=== PATIENT | male | born 1970 | race Caucasian/White ===

== ENCOUNTER → 2017-03-02 | Outpatient (CLI) | payer OTHER | LOC: HEART 5 02-22 08:45 | DX: R07.9 Chest pain, unspecified (principal); I10 Essential (primary) hypertension; R00.2 Palpitations; Q21.0 Ventricular septal defect; I27.2 Other secondary pulmonary hypertension; I07.1 Rheumatic tricuspid insufficiency; I51.7 Cardiomegaly | CPT/HCPCS: 78451; 78452; 93306; A9502 ==

== ENCOUNTER 2020-12-03 12:16 | Emergency (ER) | payer OTHER ==
[~2020-12-03 12:16] MED LIST: ATIVAN1 MG PO; BUSPAR 5MG TABLE5 MG PO; CRESTOR20 MG PO; DAILY VITAMIN1 EAC1 PO; DESYREL 50 MG T50 MG PO; EFFEXOR XR150 MG PO; FOLIC ACID 1 MG1 MG PO; IBUPROFEN800 MG PO; KEPPRA500 MG PO; LIBRIUM CAP 2525 MG PO; LOPRESSOR 25 MG25 MG PO; NORCO 5-325 TA1 EACH PO; PEPCID20 MG PO; SYNTHROID50 MCG PO; ZOCOR10 MG PO; ZOLOFT50 MG PO
[2020-12-03 13:12] LABS: HEMOGLOBIN 13.4 gm/dl (14.0-17.5); RED BLOOD COUNT 4.38 M/UL (4.20-5.50); WHITE BLOOD COUNT 12.9 K/UL (4.5-11.0)
[2020-12-03 14:21] LABS: BUN/CREATININE RATIO 10 (0-10)
[2020-12-03] MEDS ORDERED: LIBRIUM CAP 2525 MG PO (17:01)
[2020-12-03 18:13] LABS: BUN/CREATININE RATIO 9 (0-10)
== END 2020-12-03 19:10 | disposition home or self-care (01) ==
LOC: ER1 12:16
PROVIDERS: Family Medicine; Physician Assistant
DX: R56.9 Unspecified convulsions (principal); S46.921A Laceration of unspecified muscle, fascia and tendon at shoulder and upper arm level, right arm, initial encounter; S00.83XA Contusion of other part of head, initial encounter; E86.0 Dehydration; F19.10 Other psychoactive substance abuse, uncomplicated; I10 Essential (primary) hypertension; E78.00 Pure hypercholesterolemia, unspecified; W22.8XXA Striking against or struck by other objects, initial encounter
CPT/HCPCS: 36415; 70450; 70486; 71045; 72125; 73030; 80048; 80053; 80307; 81001; 82550; 82553; 83874; 84484; 85025; 85610; 85730; 93005; 96374; 96375; 96376; 99285; G0480; J2060; J2405; J3411; J3475; J7030

== ENCOUNTER 2021-05-04 16:29 | Emergency (ER) | payer OTHER ==
[2021-05-04 17:22] LABS: HEMOGLOBIN 13.4 gm/dl (14.0-17.5); RED BLOOD COUNT 4.1 M/UL (4.20-5.50); WHITE BLOOD COUNT 5.9 K/UL (4.5-11.0)
[2021-05-04 17:49] LABS: BUN/CREATININE RATIO 7 (0-10)
== END 2021-05-04 20:11 | disposition home or self-care (01) ==
LOC: ER1 16:29
PROVIDERS: Physician Assistant
DX: F10.10 Alcohol abuse, uncomplicated (principal); E87.1 Hypo-osmolality and hyponatremia; F41.9 Anxiety disorder, unspecified; I10 Essential (primary) hypertension; I25.10 Atherosclerotic heart disease of native coronary artery without angina pectoris; Z90.49 Acquired absence of other specified parts of digestive tract
CPT/HCPCS: 70450; 71045; 80053; 80307; 82550; 82553; 83874; 84439; 84443; 84484; 85025; 96374; 96375; 99284; G0480; J2060; J3411; J3475; J7030

== ENCOUNTER 2021-09-28 09:56 | Inpatient (IN) | payer OTHER ==
[~2021-09-28] VITALS: Ht 177.8 cm; Wt 93.0 kg
[~2021-09-28 09:56] MED LIST changes: -LOPRESSOR 25 MG25 MG PO
[2021-09-28 10:31] LABS: HEMOGLOBIN 14.1 gm/dl (14.0-17.5); RED BLOOD COUNT 4.16 M/UL (4.20-5.50); WHITE BLOOD COUNT 10.7 K/UL (4.5-11.0)
[2021-09-28 11:18] LABS: BUN/CREATININE RATIO 4 (0-10)
[2021-09-28 17:21] LABS: BUN/CREATININE RATIO 4 (0-10)
[2021-09-29 06:33] LABS: HEMOGLOBIN 12.2 gm/dl (14.0-17.5)
[2021-09-29 06:44] LABS: RED BLOOD COUNT 3.67 M/UL (4.20-5.50); WHITE BLOOD COUNT 5.9 K/UL (4.5-11.0)
[2021-09-29 06:46] LABS: BUN/CREATININE RATIO 4 (0-10)
[2021-09-29] MEDS ORDERED: TOPROL XL50 MG PO (07:41)
[2021-09-29] MEDS ORDERED: BUSPIRONE HCL10 MG PO (12:07)
[2021-09-29] MEDS ORDERED: PROTONIX40 MG PO (12:07)
[2021-09-29] MEDS ORDERED: CITALOPRAM HBR40 MG PO (12:08)
[2021-09-29] MEDS ORDERED: ARTHRITIS PAIN100 GM TOP (12:08)
[2021-09-29] MEDS ORDERED: TRAZODONE HCL50 MG PO (12:09)
[2021-09-29] MEDS ORDERED: CRESTOR20 MG PO (12:09)
[2021-09-29] MEDS ORDERED: VITAMIN D325 MCG PO (12:10)
[2021-09-30 04:17] LABS: BUN/CREATININE RATIO 6 (0-10)
== END 2021-09-30 09:44 | disposition home or self-care (01) | DRG 897 ==
LOC: ER1 09:56 → CDU 12:35 → PROG CARE 12:35
PROVIDERS: Emergency Medicine; Physician Assistant; ADMIT Internal Medicine
DX: F10.239 Alcohol dependence with withdrawal, unspecified (principal); E87.2 Acidosis; E87.1 Hypo-osmolality and hyponatremia; Z20.822 Contact with and (suspected) exposure to COVID-19; E78.5 Hyperlipidemia, unspecified; G40.909 Epilepsy, unspecified, not intractable, without status epilepticus; I10 Essential (primary) hypertension; F41.9 Anxiety disorder, unspecified; F32.A Depression, unspecified; E03.9 Hypothyroidism, unspecified; E87.6 Hypokalemia; K76.0 Fatty (change of) liver, not elsewhere classified; K21.9 Gastro-esophageal reflux disease without esophagitis; R74.01 Elevation of levels of liver transaminase levels; G47.00 Insomnia, unspecified; Y90.3 Blood alcohol level of 60-79 mg/100 ml; Z98.890 Other specified postprocedural states; Z90.49 Acquired absence of other specified parts of digestive tract; Z79.899 Other long term (current) drug therapy
CPT/HCPCS: 36415; 36600; 70450; 70551; 71045; 80048; 80053; 80307; 81001; 82140; 82550; 82553; 82803; 82962; 83605; 83735; 83874; 84484; 85025; 85610; 85730; 90686; 93005; G0480; J1644; J2060; J3411; J3475; J7030; U0002